=== PATIENT | male | born 1990 | race African-American/Black ===

== ENCOUNTER 2020-11-18 08:25 | Emergency (ER) | payer BC ==
[2020-11-18 08:33] VITALS: BP 135/89; PULSE 94; TEMP 99.2; BMI 21.7
[2020-11-19 04:22] LABS: SARS-CoV-2 NAA Detected (Not Detected)
== END 2020-11-18 08:54 | disposition home or self-care (01) ==
LOC: FER 08:25
DX: U07.1 COVID-19 (principal)
CPT/HCPCS: 99283-25; C9803; U0003; U0005